=== PATIENT | male | born 1975 | race Caucasian/White ===

== ENCOUNTER 2020-07-09 21:42 | Inpatient (IN) | payer OTHER ==
[~2020-07-09] VITALS: Ht 170.2 cm; Wt 81.6 kg
[2020-07-09] MEDS ORDERED: IPRATROPIUM NEB FS 0.5 MG/2.5 ML AMPUL.NEB NEB ONE (22:00)
[2020-07-09] MEDS ORDERED: IV NS 0.9% 1,000 ML BAG IV ONE ×2 (22:00→23:30)
[2020-07-09] MEDS ORDERED: methylPREDNISolone SOD SUCC 125 MG/2ML VIAL IV ONE (22:00)
[2020-07-09] MEDS ORDERED: ALBUTEROL FS 2.5 MG/3 ML VIAL.NEB CONTNEB ONE (22:00)
[2020-07-09] MEDS ORDERED: ACETAMINOPHEN ES 500 MG TABLET PO ONE (22:00)
[2020-07-09] MEDS ORDERED: methylPREDNISolone SOD SUCC 125 MG/2ML VIAL ONE (22:09)
[2020-07-09] MEDS ORDERED: ACETAMINOPHEN ES 500 MG TABLET ONE (22:10)
--- NOTE | 2020-07-09 22:10 | NUR ---
PT CAME TO THE ER C/O ASTHMA ATTACK. 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 BILATERAL WHEEZING NOTED. PT TACHYPNEIC. PT CONNECTED TO THE COLLEGE INTERN AND POX
--- NOTE | 2020-07-09 22:15 | NUR ---
BLOOD COLLECTED AND SENT TO LAB
[2020-07-09] MEDS ORDERED: IPRATROPIUM NEB FS 0.5 MG/2.5 ML AMPUL.NEB ONE (22:19)
[2020-07-09] MEDS ORDERED: ALBUTEROL FS 2.5 MG/3 ML VIAL.NEB ONE (22:19)
[2020-07-09 22:37] LABS: BASOPHILS # (AUTO) 0.1 /CMM (0.0-0.2); BASOPHILS % (AUTO) 0.4 % (0.0-2.0); EOSINOPHILS % (AUTO) 1.2 % (0.0-6.0); HEMATOCRIT 45 % (39-51); HEMOGLOBIN 14.7 g/dL (13.5-17.5); LYMPHOCYTES # (AUTO) 0.8 /CMM (0.8-4.8); LYMPHOCYTES % (AUTO) 3.3 % (20.0-44.0); MEAN CORPUSCULAR HGB CONC 33 g/dl (31.0-36.0); MEAN CORPUSCULAR VOLUME 91 fL (80-96); MONOCYTES # (AUTO) 0.8 /CMM (0.1-1.30); MONOCYTES % (AUTO) 3.4 % (2.0-12.0); NEUTROPHILS # (AUTO) 21.5 /CMM (1.8-8.9); NEUTROPHILS % (AUTO) 91.7 % (43.0-81.0); PLATELET COUNT (AUTO) 345 /CMM (150-450); RED BLOOD CELL COUNT(AUTO) 4.96 MIL/uL (4.5-6.0); WHITE BLOOD COUNT (AUTO) 23.4 K/uL (4.3-11.0)
[2020-07-09 22:48] LABS: CALCIUM, SERUM 9.2 mg/dL (8.5-10.1); CARBON DIOXIDE 25 mmol/L (21-32); CHLORIDE 97 mmol/L (98-107); CREATININE 1.1 mg/dL (0.6-1.3); GLUCOSE 132 mg/dL (74-106); POTASSIUM 3.6 mmol/L (3.5-5.1); SODIUM SERUM 131 mmol/L (136-145); UREA NITROGEN, BLOOD 14 mg/dL (7-18)
[2020-07-09] MEDS ORDERED: CEFTRIAXONE 1GM BAG (ER ONLY) 50 ML IV ONE ×2 (22:55→23:00)
[2020-07-09] MEDS ORDERED: AZITHROMYCIN 500 MG in IV D5W 250 ML IV ONE (23:00)
[2020-07-09] MEDS ORDERED: AZITHROMYCIN 500 MG VIAL ONE (23:03)
[2020-07-10] VITALS (7 sets, daily range): BP systolic 130–148; BP diastolic 68–78
[2020-07-10] MEDS ORDERED: ACETAMINOPHEN 325 MG TABLET PO PRN
[2020-07-10] MEDS ORDERED: TEMAZEPAM 15 MG CAPSULE PO PRN
[2020-07-10] MEDS ORDERED: MAG HYDROX/AL HYDROX/SIMETH 30 ML UDC PO PRN
[2020-07-10] MEDS ORDERED: ONDANSETRON HCL/PF 4 MG/2 ML VIAL IVP PRN
[2020-07-10] MEDS ORDERED: HYDROCODONE/APAP 10/325MG TABLET PO PRN
[2020-07-10] MEDS ORDERED: Z GUARD REMEDY 2 OZ OINT TP PRN
[2020-07-10] MEDS ORDERED: MAGNESIUM HYDROXIDE 30 ML UDC PO PRN
--- NOTE | 2020-07-10 00:11 | NUR ---
REPORT GIVEN TO SALIMA MCDANIEL
--- NOTE | 2020-07-10 00:15 | NUR ---
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 MALE,ALERT,ORIENTED X4,WITH CHIEF COMPLAINTS OF ASTHMA ATTACK.DIAGNOSIS OF ASTHMA EXACERBATION,BREATHING NON LABORED,SALINE LOCK RIGHT AC INTACT AND PATENT.MO KNOWN ALLERGY,NO SKIN ISSUES,CALL LIGHT IN REACH,NEEDS ANTICIPATED.
--- NOTE | 2020-07-10 00:26 | NUR ---
PT TRANSFERRED PER ACLS PROTOCOL
[2020-07-10 00:44] LABS: BILIRUBIN,DIRECT 0.3 mg/dL (0.0-0.2); BILIRUBIN,TOTAL 0.8 mg/dL (0.2-1.0)
[2020-07-10] MEDS: IV NS 0.9% 1,000 ML IV PRN ×3 (00:52→21:02)
--- NOTE | 2020-07-10 00:52 | NUR ---
WAITRESS NOTES STARTED ON NS AT 125ML/HR RATE,INFUSING VIA IV PUMP.
--- NOTE | 2020-07-10 01:03 | NUR ---
REGISTRATION OFFICER NOTES MEDICATED WITH NORCO 5/325MG,1 TAB PO ORDERED FOR GENERALIZED PAIN
[2020-07-10] MEDS: HYDROCODONE/APAP 5/325MG TABLET PO PRN ×2 (01:04→20:59)
[2020-07-10] MEDS: ALBUTEROL FS 2.5 MG/0.5 ML VIAL.NEB NEB SCH (01:35)
[2020-07-10] MEDS: IPRATROPIUM NEB FS 0.5 MG/2.5 ML AMPUL.NEB NEB SCH (01:35)
[2020-07-10] MEDS: methylPREDNISolone SOD SUCC 40 MG/ML VIAL IV SCH ×3 (05:18→21:22)
--- NOTE | 2020-07-10 06:21 | NUR ---
ASSISTANT CENTER DIRECTOR NOTES SLEPT WELL WITH NORCO,AFEBRILE 98.5,IVF INFUSING WELL ON RIGHT AC.DUE MED ADMINISTERED.IN NO ACUTE DISTRESS.WILL ENDORSE TO DAY NURSE FOR THOMAS.
[2020-07-10] MEDS ORDERED: PANTOPRAZOLE 40 MG TABLET.DR PO SCH (07:30)
[2020-07-10 07:35] LABS: BASOPHILS % (AUTO) 0.1 % (0.0-2.0); HEMATOCRIT 39 % (39-51); HEMOGLOBIN 12.8 g/dL (13.5-17.5); LYMPHOCYTES # (AUTO) 0.7 /CMM (0.8-4.8); LYMPHOCYTES % (AUTO) 3.4 % (20.0-44.0); MEAN CORPUSCULAR HGB CONC 33 g/dl (31.0-36.0); MEAN CORPUSCULAR VOLUME 91 fL (80-96); MONOCYTES # (AUTO) 0.2 /CMM (0.1-1.30); MONOCYTES % (AUTO) 0.9 % (2.0-12.0); NEUTROPHILS # (AUTO) 18.7 /CMM (1.8-8.9); NEUTROPHILS % (AUTO) 95.6 % (43.0-81.0); PLATELET COUNT (AUTO) 303 /CMM (150-450); RED BLOOD CELL COUNT(AUTO) 4.31 MIL/uL (4.5-6.0); WHITE BLOOD COUNT (AUTO) 19.5 K/uL (4.3-11.0)
--- NOTE | 2020-07-10 08:00 | NUR ---
RN OPENING NOTE Patient is resting in bed, A/O x4, showing no signs of acute distress or SOB, stable on RA, lungs sounds bilaterally are wheezing upon expiration. IV line in the RAC#20g is clean and intact flushing well. Bed is in lowest position, side rails x3 in upright position, call light is within reach, fall safety and aspiration precautions enforced. Will continue with plan of care.
[2020-07-10] MEDS ORDERED: MOME13HF2 IH (08:05)
[2020-07-10 08:09] LABS: CALCIUM, SERUM 8.8 mg/dL (8.5-10.1); CREATININE 0.8 mg/dL (0.6-1.3); POTASSIUM 3.8 mmol/L (3.5-5.1)
[2020-07-10 08:10] LABS: THYROID STIMULATING HORMONE 0.178 uIU/mL (0.358-3.74)
[2020-07-10] MEDS ORDERED: CEFTRIAXONE 1 G in IV D5W 50 ML IV SCH (09:00)
[2020-07-10] MEDS ORDERED: AZITHROMYCIN 500 MG in IV D5W 250 ML IV SCH (10:00)
[2020-07-10] MEDS ORDERED: IPRATROPIUM NEB FS 0.5 MG/2.5 ML AMPUL.NEB NEB PRN (12:30)
[2020-07-10] MEDS ORDERED: ALBUTEROL FS 2.5 MG/0.5 ML VIAL.NEB NEB PRN ×2 (12:30)
--- NOTE | 2020-07-10 18:47 | NUR ---
RN CLOSING NOTE Patient is resting in bed, A/O x4, showing no signs of acute distress or SOB, stable on RA, lungs sounds bilaterally are wheezing upon expiration. Patient denies pain or discomfort at this time. IV line in the RAC#20g is clean and intact flushing well. All patient needs met, all due medications given, patient is independent with self-care. Bed is in lowest position, side rails x3 in upright position, call light is within reach, fall safety and aspiration precautions enforced. Will endorse to cage shift manager for THOMAS.
--- NOTE | 2020-07-10 20:00 | NUR ---
tele silver miner blasting initial notes received report from am nurse and seen pt in bed awake and alert watching TV at this time . he asked for something for pain for his lower back pain and also noticed wheezing bilaterally upon expiration but no signs of any acute distress noted. . offered him a breathing treatment and norco for his pain. the patient stated "thank you ". place call light at reach. will continue monitoring for pt safety.
[2020-07-11] VITALS: BP 134/75
--- NOTE | 2020-07-11 | NUR ---
tele assembly person notes checked pt he's sleeping at this time. respiration even and unlabored not in any acute distress noted. IVF NS at 125ml/hr infusing at this time. Tele Sinus rhythm per monitor . kept him warm and comfortable at all times. place call light at reach. will continue monitoring.
[2020-07-11] MEDS: HYDROCODONE/APAP 5/325MG TABLET PO PRN (02:31)
[2020-07-11 04:00] VITALS: BP 137/89
[2020-07-11] MEDS: IPRATROPIUM NEB FS 0.5 MG/2.5 ML AMPUL.NEB NEB SCH (04:13)
[2020-07-11] MEDS: ALBUTEROL FS 2.5 MG/0.5 ML VIAL.NEB NEB SCH (04:13)
--- NOTE | 2020-07-11 05:30 | NUR ---
tele behavioral health specialist closing notes pt called and he wants to go home because his sister called that his mom and he needs to go home before mortuary come. educate the patient regarding AMA and pt understood well and he also aware of consequences living medical advise.no signs of any acute distress noted at this time. he signed the consent and notify md regarding pt request. tele Sinus tach 123 per monitor. denies any pain or any discomfort. no SOB noted. belonging gave back to him . he signed both the AMA form and belonging form as well. Accompany him going to lobby by AUDREY Mckinley by wheelchair. Addendum: 07/11/20 at 0648 by BRANDEN RAYMUNDO LVN notify MD computational chemist and left messages . no response yet.
== END 2020-07-11 05:15 | disposition left against medical advice (07) | DRG 720 ==
LOC: ER 21:46 → TELE 07-10 00:03
PROVIDERS: ADMIT Nurse Practitioner Acute Care; ATTEND Nurse Practitioner Acute Care
DX: A41.9 Sepsis, unspecified organism (principal); J15.9 Unspecified bacterial pneumonia; J45.901 Unspecified asthma with (acute) exacerbation; E87.1 Hypo-osmolality and hyponatremia; I10 Essential (primary) hypertension; E87.2 Acidosis; E66.9 Obesity, unspecified; F17.210 Nicotine dependence, cigarettes, uncomplicated; Z68.28 Body mass index [BMI] 28.0-28.9, adult; Z71.6 Tobacco abuse counseling
CPT/HCPCS: 36415; 71045-TC; 80048-TC; 80061-TC; 82247-TC; 82248-TC; 83605-TC; 84443-TC; 84484-TC; 85025-TC; 85730-TC; 87040-TC; 87081-TC; 94799-TC; C9803; G0378; J0456; J0696; J2920; J2930; J7030; J7060

== ENCOUNTER 2021-06-07 00:35 | Emergency (ER) | payer OTHER ==
[~2021-06-07] VITALS: Ht 170.2 cm; Wt 83.9 kg
[~2021-06-07 00:35] MED LIST: MOME13HF2 IH
--- NOTE | 2021-06-07 00:35 | NUR ---
TO BED 5. AMBULATED TO ROOM. C/O SOB, 97%ON ROOM AIR. PLACED ON 2L/MIN VIA CANNAL CANNULA FOR COMFORT 99%. STATES HE RAN OUT OF MEDICATION AT 11AM.
[2021-06-07] MEDS ORDERED: predniSONE 20 MG TABLET ONE ×2 (00:55→01:00)
[2021-06-07] MEDS ORDERED: ALBUTEROL FS 2.5 MG/3 ML VIAL.NEB NEB ONE ×2 (01:00→02:00)
[2021-06-07] MEDS ORDERED: IPRATROPIUM NEB FS 0.5 MG/2.5 ML AMPUL.NEB NEB ONE ×2 (01:00→02:00)
[2021-06-07] MEDS ORDERED: predniSONE 20 MG TABLET PO ONE (01:00)
[2021-06-07] MEDS ORDERED: IPRATROPIUM NEB FS 0.5 MG/2.5 ML AMPUL.NEB ONE ×2 (01:16→02:38)
[2021-06-07] MEDS ORDERED: ALBUTEROL FS 2.5 MG/3 ML VIAL.NEB ONE ×2 (01:16→02:38)
--- NOTE | 2021-06-07 01:28 | NUR ---
POST BREATHING TREATMENT FROM RT, PATIENT PLACED ON ROOM AIR. O2 SAT 97%
[2021-06-07] MEDS ORDERED: IPRA3AMP23 IH (02:08)
[2021-06-07] MEDS ORDERED: ALBU18HF2 INH (02:08)
[2021-06-07] MEDS ORDERED: PRED50TA PO (02:09)
--- NOTE | 2021-06-07 02:09 | NUR ---
RT INFORMED THERE IS ANOTHER ORDER FOR BREATHING TREATMENT.
--- NOTE | 2021-06-07 03:03 | NUR ---
Patient discharged to home in stable condition. Written and verbal after care instructions given. Patient verbalizes understanding of instruction. RX GIVEN. AMBUALATED OUT OF ER.
[2021-06-07 03:04] VITALS: BP 129/86
== END 2021-06-07 03:05 | disposition home or self-care (01) ==
LOC: ER 00:38
DX: J45.901 Unspecified asthma with (acute) exacerbation (principal); I10 Essential (primary) hypertension; F17.200 Nicotine dependence, unspecified, uncomplicated; Z79.899 Other long term (current) drug therapy
CPT/HCPCS: 94640; 99285; J7512 ×2